=== PATIENT | male | born 1935 | race Two or more races ===

== ENCOUNTER 2020-04-13 09:23 | Outpatient (CLI) | payer MEDICARE, OTHER ==
--- NOTE | 2020-04-14 18:45 | Consultation ---
DATE OF CONSULTATION: 04/13/2020 CONSULTING PHYSICIAN: Eusebio Schulz MD REFERRING PHYSICIAN: Oleksandr Calderón MD REASON FOR REFERRAL: Referral for screening colonoscopy and chronic GERD. PAST MEDICAL HISTORY: 1. BPH. 2. Hypothyroidism. 3. Hypercholesterolemia. 4. Cataract. 5. Hypertension. PAST SURGICAL HISTORY: Cataract surgery. MEDICATIONS: Please see medication reconciliation list. FAMILY HISTORY: No family history of GI malignancies. SOCIAL HISTORY: Patient denies any tobacco, alcohol, or drug abuse. REVIEW OF SYSTEMS: Positive for chronic GERD, left-sided abdominal pain. PHYSICAL EXAMINATION: VITAL SIGNS: Temperature 97.5. Vital signs stable. Weight is 229.3. HEENT: Normocephalic and atraumatic. Sclerae anicteric. NECK: Supple. No evidence of obvious lymphadenopathy. CARDIOVASCULAR: Regular rate and rhythm. Plus S1 and S2. LUNGS: Clear to auscultation bilaterally. ABDOMEN: Bowel sounds positive. Soft. There is minimal tenderness to palpation in the left upper quadrant. No rebound. No guarding. No peritoneal sign. EXTREMITIES: No cyanosis, no clubbing, no edema. ASSESSMENT AND PLAN: This is an 85-year-old male with complaint of abdominal pain, chronic GERD. Patient was referred for endoscopy for evaluation of chronic GERD and also needs a colonoscopy given abdominal pain of unknown etiology. Patient was given instruction for prep for colonoscopy. Risks, benefits of procedure were explained to him. We will schedule him as soon as authorization is obtained. Patient also was given samples of Linzess 72 mcg p.o. daily to see if that helps him with his constipation. I want to thank Dr. Calderón for this kind referral. Eusebio Schulz M.D. DR: MALIHA JOB#: [id number] CC: Oleksandr Calderón M.D.
== END 2020-04-13 11:23 | disposition home or self-care (01) ==
LOC: PAN 09:23
DX: K21.9 Gastro-esophageal reflux disease without esophagitis (principal); E03.9 Hypothyroidism, unspecified; E78.00 Pure hypercholesterolemia, unspecified; I10 Essential (primary) hypertension; R10.9 Unspecified abdominal pain
CPT/HCPCS: G0463

== ENCOUNTER 2020-04-28 07:48 | Day surgery (SDC) | payer MEDICARE, OTHER ==
[2020-04-28] VITALS (8 sets, daily range): BP systolic 132–158; BP diastolic 65–74
[~2020-04-28] VITALS: Ht 184.2 cm; Wt 99.8 kg
[2020-04-28] MEDS ORDERED: LR 1000ml 1,000 ML IVLG SCH ×2 (08:15→10:30)
--- NOTE | 2020-04-28 09:22 | Anethesia Preoperative Eval ---
Anesthesia Pre-op PMH/ROS General Date of Evaluation: Apr 28, 2020 Time of Evaluation: 09:18 Anesthesiologist: Stephane ASA Score: ASA 2 Mallampati Score Class I : Soft palate, uvula, fauces, pillars visible Class II: Soft palate, uvula, fauces visible Class III: Soft palate, base of uvula visible Class IV: Only hard plate visible Mallampati Classification: Class II Surgeon: Zeus Diagnosis: Abdominal pain Surgical Procedure: EGD Colonoscopy Anesthesia History: none Social History: smoking - h/o Family History: no anesthesia problems Allergies: Coded Allergies: No Known Allergies (Unverified , 04/13/20) Medications: see eMAR Patient NPO?: Yes Past Medical History Cardiovascular: Reports: HTN; Denies: CAD, [place], valve dz, arrhythmia, other Pulmonary: Denies: asthma, COPD, BRENDAN, other Gastrointestinal/Genitourinary: Reports: GERD; Denies: CRI, ESRD, other Neurologic/Psychiatric: Denies: dementia, CVA, depression/anxiety, TIA, other Endocrine: Reports: hypothyroidism; Denies: DM, steroids, other HEENT: Reports: cataract (L), cataract (R) - s/p Sx; Denies: glaucoma, SOLOMON (L), SOLOMON (R), other Hematology/Immune: Denies: anemia, DVT, bleeding disorder, other Musculoskeletal/Integumentary: Reports: OA; Denies: RA, DJD, DDD, edema, other PMH Narrative: as above PSxH Narrative: See H&P Anesthesia Pre-op Phys. Exam Physician Exam Last Vital Signs Date Time Temp Pulse Resp B/P (MAP) Pulse Ox O2 Delivery O2 Flow Rate FiO2 04/28/20 08:50 97.8 58 18 150/65 96 Room Air Constitutional: NAD Neurologic: CN 2-12 intact Cardiovascular: RRR, no M/R/G Respiratory: CTA Gastrointestinal: S/NT/ND Airway Exam Mallampati Score: Class II MO: full Neck: stiff ROM: full Teeth: missing Dentures: no upper, no lower Anesthesia Pre-op A/P Labs see chart Studies Pre-op Studies: EKG - SR Risk Assessment & Plan Assessment: ASA 2 Plan: MAC Status Change Before Surgery: Oleksandr Sibley MD Apr 28, 2020 09:22
[2020-04-28] MEDS ORDERED: LUNESTA3 MG ORAL (09:35)
[2020-04-28] MEDS ORDERED: LUMIGAN2.5 ML BOTH EYES (09:35)
[2020-04-28] MEDS ORDERED: ASPIRIN EC81 MG ORAL (09:35)
[2020-04-28] MEDS ORDERED: DICLOFENAC TRANSTR092 (09:35)
[2020-04-28] MEDS ORDERED: CIALIS5 MG PO (09:35)
[2020-04-28] MEDS ORDERED: FINASTERIDE5 MG ORAL (09:35)
[2020-04-28] MEDS ORDERED: CRESTOR10 M2 ORAL (09:35)
[2020-04-28] MEDS ORDERED: MYRBETRIQ25 MG PO (09:35)
[2020-04-28] MEDS ORDERED: BENICAR40 MG ORAL (09:35)
[2020-04-28] MEDS ORDERED: FLOMAX0.4 MG ORAL (09:35)
[2020-04-28] MEDS ORDERED: CLOBETASOL EMOL15 GM TP (09:35)
[2020-04-28] MEDS ORDERED: MAGNESIUM500 MG PO (09:35)
[2020-04-28] MEDS ORDERED: MECLIZINE HCL25 MG ORAL (09:35)
[2020-04-28] MEDS ORDERED: VITAMIN D325 MC1 PO (09:35)
[2020-04-28] MEDS ORDERED: TRAZODONE HCL150 MG ORAL (09:35)
[2020-04-28] MEDS ORDERED: ENULOSE10 GM/15 M PO (09:35)
[2020-04-28] MEDS ORDERED: B12 ACTIVE1000 MCG PO (09:35)
[2020-04-28] MEDS ORDERED: SYNTHROID200 MC1 IV (09:35)
[2020-04-28] MEDS ORDERED: PAZEO2.5 ML OP (09:35)
[2020-04-28] MEDS ORDERED: CREON DR 36,001 EACH PO (09:35)
--- NOTE | 2020-04-28 09:46 | Short Stay Surgery H&P ---
History of Present Illness History of Present Illness Chief Complaint see office note HPI Cuco Shipley is a 85 year old male who was admitted on for Gerd,Colon Screening Patient History Allergies: Coded Allergies: No Known Allergies (Unverified , 04/13/20) Medication History Scheduled Aspirin Ec* (Aspirin Ec*), 81 MG ORAL DAILY, (Reported) Bimatoprost (Lumigan), 1 DROP BOTH EYES DAILY, (Reported) Cholecalciferol (Vitamin D3) (Vitamin D3*), 5,000 MCG PO DAILY, (Reported) Finasteride (Finasteride), 5 MG ORAL DAILY, (Reported) Levothyroxine Sodium (Levothyroxine Sodium), 25 MCG IV DAILY, (Reported) Lipase/Protease/Amylase (Creon Dr 36,000 Units Capsule), 1 EACH PO TIWM, (Reported) Meclizine Hcl* (Meclizine*), 25 MG ORAL THREE TIMES A DAY, (Reported) Olmesartan Medoxomil (Benicar), 40 MG ORAL DAILY, (Reported) Rosuvastatin Calcium* (Crestor*), 10 MG ORAL DAILY, (Reported) Tadalafil (Cialis), 5 MG PO DAILY, (Reported) Tamsulosin HCl (Flomax), 0.4 MG ORAL DAILY, (Reported) Trazodone* (Trazodone*), 50 MG ORAL BEDTIME, (Reported) [Diclofenac Patch], 1.3 PATCH [id number] EVERY OTHER DAY, (Reported) Scheduled PRN Eszopiclone (Lunesta), 3 MG ORAL BEDTIME PRN for Insomnia, (Reported) Miscellaneous Medications Clobetasol Propionate/Emoll (Clobetasol Emollient 0.05% Crm), 15 GM TP, (Reported) Lactulose (Enulose), 10 GM PO, (Reported) Magnesium Oxide (Magnesium), 500 MG PO, (Reported) Mecobalamin (B12 Active), 2,500 MCG PO, (Reported) Mirabegron (Myrbetriq), 25 MG PO, (Reported) Olopatadine HCl (Pazeo), 2.5 ML OP, (Reported) Physical Exam Vital Signs Last Vital Signs Date Time Temp Pulse Resp B/P (MAP) Pulse Ox O2 Delivery O2 Flow Rate FiO2 04/28/20 09:39 Room Air 04/28/20 08:50 97.8 58 18 150/65 96 Plan Attestation Are the patient's medical conditions optimized for surgery? Eusebio Schulz MD Apr 28, 2020 09:46
--- NOTE | 2020-04-28 09:46 | Pre-Procedure Note/Attestation ---
Pre-Procedure Note/Attestation Complete Prior to Procedure Planned Procedure: not applicable Procedure Narrative: esophagogastroduodenoscopy and colonoscopy Indications for Procedure Pre-Operative Diagnosis: abd pain Attestation I attest that I discussed the nature of the procedure; its benefits; risks and complications; and alternatives (and the risks and benefits of such alternatives), prior to the procedure, with the patient (or the patient's legal new accounts banking representative). I attest that, if there was a reasonable possibility of needing a blood transfusion, the patient (or the patient's legal new accounts banking representative) was given the [facility] standardized written summary, pursuant to the [place] Blood Safety Act ([place] Health and Safety Code # 1645, as amended). I attest that I re-evaluated the patient just prior to the surgery and that there has been no change in the patient's H&P, except as documented below: Eusebio Schulz MD Apr 28, 2020 09:46
[2020-04-28] MEDS ORDERED: fentaNYL 100 mcg/2 mL IV ONE (09:54)
[2020-04-28] MEDS ORDERED: LR 1000ml ONE (10:00)
[2020-04-28] MEDS ORDERED: fentaNYL 100 mcg/2 mL IV PRN (10:30)
--- NOTE | 2020-04-28 10:32 | Endoscopy Procedure Note ---
Endoscopy Procedure Note General Indication for Procedure: abd pain Procedures Performed: EGD, colonoscopy Operative Findings/Diagnosis: gastritis, hemorrhoids Specimen: yes Pt Tolerated Procedure Well: Yes Estimated Blood Loss: none Anesthesia Anesthesiologist: rachael ramos Anesthesia: MAC Inserted Devices Implant(s) used?: No Quality Quality of Bowel Preparation: Excellent Did scope reach the cecum?: Yes Was there any complications?: No GI Core Measures 50 yrs or older w/o bx or poly: No 10yrs. F/U recommended: Yes If not recommended, why?: Above average risk 18 years or older w/prev. colo: No Eusebio Schulz MD Apr 28, 2020 10:32
--- NOTE | 2020-04-28 10:45 | Immediate Post-Op Evaluation ---
Immediate Post-Op Evalulation Immediate Post-Op Evalulation Procedure: Egd Colonoscopy Date of Evaluation: Apr 28, 2020 Time of Evaluation: 10:43 IV Fluids: 600 Blood Products: none Estimated Blood Loss: none Urinary Output: none Blood Pressure Systolic: 148 Blood Pressure Diastolic: 76 Pulse Rate: 52 Respiratory Rate: 20 O2 Sat by Pulse Oximetry: 99 Temperature (Fahrenheit): 97.8 Pain Score (1-10): 1 Nausea: No Vomiting: No Complications none Patient Status: awake, patent, none Hydration Status: adequate Oleksandr Calderón MD Apr 28, 2020 10:44
--- NOTE | 2020-04-28 10:49 | 48 Hour Post Anesthesia Eval ---
Post Anesthesia Evaluation Procedure: Egd Colonoscopy Date of Evaluation: Apr 28, 2020 Time of Evaluation: 10:48 Blood Pressure Systolic: 125 0: 68 Pulse Rate: 58 Respiratory Rate: 20 Temperature (Fahrenheit): 97.6 O2 Sat by Pulse Oximetry: 98 Airway: patent Nausea: No Vomiting: No Pain Intensity: 1 Hydration Status: adequate Cardiopulmonary Status: stable Mental Status/LOC: patient returned to baseline Follow-up Care/Observations: n/a Post-Anesthesia Complications: none Follow-up care needed: ready to discharge Oleksandr Calderón MD Apr 28, 2020 10:49
--- NOTE | 2020-04-28 11:30 | Procedure Note ---
DATE OF PROCEDURE: 04/28/2020 SURGEON: Eusebio Schulz MD. PROCEDURE: Upper endoscopy with biopsy and colonoscopy. ANESTHESIA: Per Oleksandr Calderón MD. INSTRUMENT: Olympus adult flexible upper endoscope and colonoscope. INDICATION: Abdominal pain. REASON FOR PROCEDURE: The procedure, risks, benefits, and possible consequences, including hemorrhage, aspiration, perforation and infection, and alternative treatments, were explained to the patient/legal guardian by Dr. Eusebio Schulz and the patient/legal guardian understood and accepted these risks. DESCRIPTION OF PROCEDURE: After informed consent was obtained and the patient was adequately sedated, Olympus upper endoscope was advanced from mouth into the second portion of the duodenum and retroflexion was performed in the stomach. The patient has diffuse gastritis. Random biopsies from antrum and body was obtained to rule out H. pylori infection. Otherwise, the rest of upper endoscopic examination grossly within normal limits. At this time, the upper endoscope was retrieved and the patient was turned over for colonoscopy. First, rectal exam was performed, which was positive for internal hemorrhoids. Then, the scope was advanced from rectum into the cecum, then subsequently terminal ileum. Quality of prep was very good. The patient had normal colonoscopy examination without any mass, polyp, or any other pathology. Retroflexion in the rectum showed evidence of medium-sized internal hemorrhoids. SUMMARY OF FINDINGS: 1. Gastritis, status post biopsy. 2. Internal hemorrhoids. RECOMMENDATIONS: Follow up biopsy results and treat accordingly. Eusebio Schulz M.D. DR: VICENTE JOB#: [id number] CC:
== END 2020-04-28 11:55 | disposition home or self-care (01) ==
LOC: GAS 07:48
DX: K29.50 Unspecified chronic gastritis without bleeding (principal); K64.8 Other hemorrhoids; I10 Essential (primary) hypertension; K21.9 Gastro-esophageal reflux disease without esophagitis; E03.9 Hypothyroidism, unspecified; M19.90 Unspecified osteoarthritis, unspecified site; Z79.82 Long term (current) use of aspirin; Z79.899 Other long term (current) drug therapy
CPT/HCPCS: 43239; 45378; 94003; J2704; J3010; J7120; U0002; 94150